=== PATIENT | female | born 2000 | race Caucasian/White ===

== ENCOUNTER 2019-03-06 12:01 | Emergency (ER) | payer MEDICAID ==
[~2019-03-06] VITALS: Ht 162.6 cm; Wt 52.0 kg
[2019-03-06 12:24] VITALS: BP 99/71
== END 2019-03-06 15:48 | disposition left against medical advice (07) ==
LOC: ER 12:01
DX: M79.10 Myalgia, unspecified site (principal); R09.89 Other specified symptoms and signs involving the circulatory and respiratory systems; Z53.21 Procedure and treatment not carried out due to patient leaving prior to being seen by health care provider

== ENCOUNTER 2023-06-02 11:48 | Emergency (ER) | payer MEDICAID, OTHER ==
[~2023-06-02] VITALS: Ht 152.4 cm; Wt 61.3 kg
[2023-06-02 12:12] VITALS: BP 136/85; PULSE 77; RESP 18; TEMP 98.5; O2SAT 100
[2023-06-02] MEDS ORDERED: NAPR-1176 MT (12:26)
== END 2023-06-02 12:30 | disposition home or self-care (01) ==
LOC: ER 11:48
DX: S61.111A Laceration without foreign body of right thumb with damage to nail, initial encounter (principal); W20.8XXA Other cause of strike by thrown, projected or falling object, initial encounter; Y93.89 Activity, other specified; Y92.89 Other specified places as the place of occurrence of the external cause; Y99.8 Other external cause status
CPT/HCPCS: 99282

== ENCOUNTER 2023-12-09 14:35 | Emergency (ER) | payer MEDICAID ==
[~2023-12-09] VITALS: Ht 165.1 cm; Wt 61.0 kg
[~2023-12-09 14:35] MED LIST: NAPR-1176 MT
[2023-12-09 14:41] VITALS: O2SAT 99
[2023-12-09 15:53] LABS: CLARITY URINE CLEAR (CLEAR); COLOR URINE YELLOW (YELLOW); GLUCOSE URINE NEGATIVE (NEGATIVE); KETONES URINE NEGATIVE (NEGATIVE); LEUKOCYTE ESTERASE URINE NEGATIVE (NEGATIVE); NITRITE URINE NEGATIVE (NEGATIVE); OCCULT BLOOD URINE NEGATIVE (NEGATIVE); PH URINE 7.5 (4.5-8.0); PROTEIN URINE NEGATIVE (NEGATIVE); UROBILINOGEN URINE 0.2 E.U./dL (0.2-1.0)
[2023-12-09 17:04] LABS: BASOPHILS % 0.4 % (0.0-2.0); EOSINOPHILS % 0.7 % (0.0-5.0); HEMATOCRIT. 39.7 % (36.0-48.0); HEMOGLOBIN. 13.1 g/dL (12.0-16.0); LYMPHOCYTES % 38.7 % (20.0-50.0); MEAN CORPUSCULAR HEMOGLOBIN 29.9 pg (28.0-32.0); MEAN CORPUSCULAR VOLUME 90.8 fL (81.0-99.0); MEAN PLATELET VOLUME 7.6 fl (7.4-10.4); MONOCYTES % 6.1 % (2.0-8.0); NEUTROPHILS % 54.1 % (40.0-76.0); PLATELET 300 x1000/uL (130-400); RED BLOOD CELL COUNT 4.37 mill/uL (4.2-5.4); RED CELL DISTRIBUTION WIDTH 14.3 % (11.6-14.6); WHITE BLOOD COUNT 5.4 x1000/uL (4.5-11.0)
[2023-12-09 17:13] LABS: CALCIUM 9.9 mg/dL (8.7-10.4); CHLORIDE 104 mEq/L (98-107); POTASSIUM 3.9 mEq/L (3.5-5.1); SODIUM 139 mEq/L (136-145)
[2023-12-09 17:14] LABS: CARBON DIOXIDE 28 mEq/L (21-32)
[2023-12-09 17:19] LABS: CREATININE 0.7 mg/dL (0.6-1.0); GLUCOSE 80 mg/dL (70-105); UREA NITROGEN BLOOD 10 mg/dL (9-23)
[2023-12-09 17:35] LABS: HCG SCREEN NEGATIVE
[2023-12-09 19:37] VITALS: BP 128/70; PULSE 80; RESP 16; TEMP 36.89184; O2SAT 99
[2023-12-09] MEDS ORDERED: IOHEXOL-300 100 ML BOTTLE ONE (23:19)
== END 2023-12-09 19:37 | disposition home or self-care (01) ==
LOC: ER 14:35
DX: R10.30 Lower abdominal pain, unspecified (principal); R30.0 Dysuria
CPT/HCPCS: 80048; 81003; 81025; 84703; 83690; 85025; 36415; 74177; 99285; Q9967; Z7610 ×2

== ENCOUNTER 2024-01-23 00:05 | Emergency (ER) | payer MEDICAID ==
[~2024-01-23] VITALS: Ht 167.6 cm; Wt 53.0 kg
[2024-01-23 00:07] VITALS: TEMP 98.3; O2SAT 100
[2024-01-23 01:50] VITALS: BP 133/91; PULSE 85; RESP 18
[2024-01-23] MEDS: KETOROLAC 30MG/ML VIAL IM ONE (01:50)
[2024-01-23] MEDS: CYCLOBENZAPRINE 10MG TABLET PO ONE (01:50)
[2024-01-23] MEDS ORDERED: IBUP-2029 MT (02:20)
== END 2024-01-23 02:31 | disposition home or self-care (01) ==
LOC: ER 00:19
DX: S20.219A Contusion of unspecified front wall of thorax, initial encounter (principal); S70.02XA Contusion of left hip, initial encounter; Z79.899 Other long term (current) drug therapy; V89.2XXA Person injured in unspecified motor-vehicle accident, traffic, initial encounter; Y93.89 Activity, other specified; Y92.89 Other specified places as the place of occurrence of the external cause; Y99.8 Other external cause status
CPT/HCPCS: 99284; 71045; 81025; 73502; 96372; J1885; 99283

== ENCOUNTER 2024-05-07 03:35 | Emergency (ER) | payer MEDICAID ==
[~2024-05-07] VITALS: Ht 165.1 cm; Wt 46.0 kg
[~2024-05-07 03:35] MED LIST changes: +IBUP-2029 MT
[2024-05-07 03:45] VITALS: O2SAT 99
[2024-05-07] MEDS: DIPHENHYDRAMINE 12.5MG/5ML UDC PO ONE (04:29)
[2024-05-07] MEDS: METOCLOPRAMIDE HCL 10MG TABLET PO ONE (04:29)
[2024-05-07] MEDS: KETOROLAC 15MG/ML VIAL IM ONE (04:32)
[2024-05-07] MEDS ORDERED: ONDA4TAB50 PO (05:59)
[2024-05-07] MEDS ORDERED: IBUP-2028 PO (06:00)
[2024-05-07 06:37] VITALS: BP 121/72; PULSE 80; RESP 18; TEMP 36.7; O2SAT 99
== END 2024-05-07 06:38 | disposition home or self-care (01) ==
LOC: ER 03:35
DX: G44.209 Tension-type headache, unspecified, not intractable (principal); Z79.899 Other long term (current) drug therapy
CPT/HCPCS: 81025; 70450; 96372; 99285; J8597; Q0163; J1885; Z7610